=== PATIENT | female | born 1985 ===

== ENCOUNTER 2019-02-16 11:33 | Emergency (ER) | payer SELFPAY ==
[2019-02-16 12:30] VITALS: BP 102/59
--- NOTE | 2019-02-16 12:31 | Event Note ---
ED Screening Note Date of service: 02/16/19 Time: 12:23 ED Screening Note: This is a 33 y.o. F. that presents to the ER with 15 weeks . She was sent from the Center in [place] due to no tones during visit this morning. LMP 11/06/2018, A0 - vaginal bleeding, abdominal pain, urinary frequency, urgency, or dysuria. This initial assessment/diagnostic orders/clinical plan/treatment(s) is/are subject to change based on patients health status, clinical progression and re- assessment by fellow clinical providers in the ED. Further treatment and workup at subsequent clinical providers discretion. Patient/guardian urged not to elope from the ED as their condition may be serious if not clinically assessed and managed. Initial orders include: Labs
[2019-02-16 13:34] LABS: Bacteria,Urine 1+ /HPF (Negative); Bilirubin,Urine NEG (Negative); Blood,Urine SM (Negative); Color,Urine Straw (Yellow); Protein,Urine <15 mg/dL mg/dL (Negative); Urobilinogen,Urine < 2.0 mg/dL (<2.0)
[2019-02-16 13:36] LABS: HCG Qualitative,Urine Positive (Negative)
--- NOTE | 2019-02-16 13:42 | Emergency Department Report ---
ED HPI - General Chief complaint: Medical Clearance Stated complaint: 14WKS /NO HEARTBEAT(BABY) Time Seen by Provider: 02/16/19 12:22 Source: patient Mode of arrival: Ambulatory Limitations: Language Barrier - History of Present Illness Initial comments: The patient is a 3, para 1 female, not known to this provider previously. She reports her last period is November 2018. She typically follows with the [facility] Patient is sent to the emergency room for evaluation of presumed demise. The patient is not having any pain at this time. Radiation: none :: Yes - Related Data Allergies Allergy/AdvReac Type Severity Reaction Status Date / Time No Known Allergies Allergy Unverified 02/16/19 12:31 ED Review of Systems ROS: Stated complaint: 14WKS /NO HEARTBEAT(BABY) Other details as noted in HPI Constitutional: denies: fever Eyes: denies: eye discharge ENT: denies: congestion Respiratory: denies: wheezing Cardiovascular: denies: syncope Gastrointestinal: denies: abdominal pain, nausea, vomiting Genitourinary: denies: dysuria, abnormal menses Musculoskeletal: denies: back pain Neurological: denies: weakness Hematological/Lymphatic: denies: easy bleeding ED Past Medical Hx - Past Medical History Previous Medical History?: No - Surgical History Past Surgical History?: Yes Additional Surgical History: - Social History Smoking Status: Never Smoker Substance Use Type: None ED Physical Exam - General Limitations: Language Barrier General appearance: alert, in no apparent distress - Head Head exam: Present: atraumatic, normocephalic - Eye Eye exam: Present: normal appearance, EOMI. Absent: nystagmus - ENT ENT exam: Present: normal exam, normal orophraynx, mucous membranes moist, normal external ear exam - Neck Neck exam: Present: normal inspection, full ROM. Absent: tenderness, meningismus - Respiratory Respiratory exam: Present: normal lung sounds bilaterally. Absent: respiratory distress - Cardiovascular Cardiovascular Exam: Present: regular rate, normal rhythm, normal heart sounds. Absent: bradycardia, tachycardia, irregular rhythm, systolic murmur, diastolic murmur, rubs, gallop - GI/Abdominal GI/Abdominal exam: Present: soft, other (there is no abdominal tenderness, the uterus is consistent with dates). Absent: distended, tenderness, guarding, rebound, rigid, pulsatile mass - Extremities Exam Extremities exam: Present: normal inspection, full ROM, other (2+ pulses noted in the bilateral upper, lower extremities. There is no long bone tenderness. Musculoskeletal compartments are soft. The pelvis is stable.). Absent: pedal edema, joint swelling, calf tenderness - Back Exam Back exam: Present: normal inspection, full ROM. Absent: tenderness, CVA tenderness (R), CVA tenderness (L), paraspinal tenderness, vertebral tenderness - Neurological Exam Neurological exam: Present: alert, normal gait, other (there is no facial droop. The tongue is midline. Extraocular movements are intact bilaterally. Patient speaking in full complete sentences. Shoulder shrug is intact bilaterally. Hearing is grossly intact bilaterally. Visual acuity intact to finger counting and color perception at a close distance. 5/5 strength 4 extremities. Sensation intact to light touch in 4 extremities.). Absent: motor sensory deficit - Psychiatric Psychiatric exam: Present: normal mood - Skin Skin exam: Present: warm, dry, intact, normal color. Absent: rash ED Course Vital Signs 02/16/19 12:23 Temperature 98.3 F Pulse Rate 68 Respiratory 20 Rate Blood Pressure 102/59 O2 Sat by Pulse 99 Oximetry - Reevaluation(s) Reevaluation #1: 02/16/19 17:26 this provider is conversant in telugu ED Medical Decision Making - Lab Data Result diagrams: 02/16/19 13:41 Vital Signs 02/16/19 12:23 Temperature 98.3 F Pulse Rate 68 Respiratory 20 Rate Blood Pressure 102/59 O2 Sat by Pulse 99 Oximetry Lab Results 02/16/19 02/16/19 02/16/19 Range/Units 12:41 13:31 13:41 WBC 9.3 (4.5-11.0) K/mm3 RBC 4.64 (3.65-5.03) M/mm3 Hgb 13.8 (10.1-14.3) gm/dl Hct 39.9 (30.3-42.9) % MCV 86 (79-97) fl MCH 30 (28-32) pg MCHC 35 H (30-34) % RDW 13.6 (13.2-15.2) % Plt Count 283 (140-440) K/mm3 HCG, Quant 4204 H (0-4) mIU/mL Urine Color Straw (Yellow) Urine Turbidity Slightly-cloudy (Clear) Urine pH 6.0 (5.0-7.0) Ur Specific [place] 1.004 (1.003-1.030) Urine Protein <15 mg/dl (Negative) mg/dL Urine Glucose (UA) Neg (Negative) mg/dL Urine Ketones Neg (Negative) mg/dL Urine Blood Sm (Negative) Urine Nitrite Neg (Negative) Urine Bilirubin Neg (Negative) Urine Urobilinogen < 2.0 (<2.0) mg/dL Ur Leukocyte Esterase Neg (Negative) Urine WBC (Auto) 1.0 (0.0-6.0) /HPF Urine RBC (Auto) 2.0 (0.0-6.0) /HPF U Epithel Cells (Auto) 9.0 (0-13.0) /HPF Urine Bacteria (Auto) 1+ (Negative) /HPF Urine HCG, Qual Positive A (Negative) - Radiology Data Radiology results: report reviewed, image reviewed Print Report Referring Physician: MENDEL GOLDSTEIN Patient Name: BENI BLACKWELLFELICIA Date of : 1985 Sex: Female Report Date: 2019-02-16 Report Status: Finalized Findings [facility] [address] [place] [address] Ultrasound Report Signed Patient: BENI ADHIKARI#: [id number] : 1985 Acct:[id number] Age/Sex: 33 / F ADM Date: 02/16/19 Loc: ED Attending Dr: Ordering Physician: ALEX SHAW Date of Service: 02/16/19 Procedure(s): US OB <= 14 weeks fetus Accession Number(s): [id number] cc: ALEX SHAW ULTRASOUND OBSTETRIC Indication: negative tones on office visit Findings: No heart tones are identified. Estimated sonographic age is 13 weeks and 3 days. The ovaries are normal. There is no free fluid. Impression: No heart tones identified. Signer Name: Daniel Coburn MD Signed: 02/16/2019 1:42 PM Workstation Name: [id number] Transcribed By: CHRYSTAL Dictated By: Daniel Coburn MD Electronically Authenticated By: Daniel Coburn MD Signed Date/Time: 02/16/19 5923 - Medical Decision Making Differential diagnosis, including not limited to: demise Assessment and plan: 33-year-old female with a complaint of confirmation for demise. She does not endorse any additional complaints. She is not having pain, and does not endorse vaginal bleeding. She is afebrile with reassuring vital signs and in no acute distress. Laboratory studies reviewed and appreciated. Ultrasound confirms demise. Given that she is not having additional symptoms at this time, we would recommend expectant management. Discussed with obstetrics on-call, Dr. Espino, who agrees to this plan of care. The patient will need to follow-up with her outpatient [facility] physician. Critical care attestation.: If time is entered above; I have spent that time in minutes in the direct care of this critically ill patient, excluding procedure time. ED Disposition Clinical Impression: demise Disposition: DC-01 TO HOME OR SELFCARE Is pt being admited?: No Does the pt Need Aspirin: No Condition: Stable Instructions: Spontaneous Miscarriage (ED) Additional Instructions: Unfortunately, ultrasound today confirms demise. Continue current outpatient medications. Follow-up with her [facility] doctor within the next week. Return to emergency room right away with severe pain, severe bleeding, fever, chills, nausea, vomiting, weakness, change in mental status, new, worsened or different symptoms not present on initial emergency room evaluation. At this point time, no medical therapy is recommended for demise. Patient will most likely begin to have contractions, bleeding and cramping in the next few hours to days. Desafortunadamente, el ultrasonido de hoy confirma la muerte . Continuar con los medicamentos actuales para pacientes ambulatorios. Ernestine un seguimiento con betancourt mdico obstetra / gineclogo dentro de la prxima semana. Regrese a la kendrick de emergencias de inmediato con dolor intenso, sangrado intenso, fiebre, escalofros, nuseas, vmitos, debilidad, cambio en el estado mental, sntomas nuevos, empeorados o diferentes que no estn presentes en la evaluacin inicial de la kendrick de emergencias. En dani momento, no se recomienda ninguna terapia mdica para la muerte . Lo ms probable es que el paciente comience a tener contracciones, sangrado y calambres en las prximas horas o hoyt. Referrals: [facility] [Provider Group] - 3-5 Days [facility] [Provider Group] - 3-5 Days [facility] [Provider Group] - 3-5 Days Print Language: GREENLANDIC
--- NOTE | 2019-02-16 13:46 | Ultrasound Report ---
ULTRASOUND OBSTETRIC Indication: negative tones on office visit Findings: No heart tones are identified. Estimated sonographic age is 13 weeks and 3 days. The ovaries are normal. There is no free fluid. Impression: No heart tones identified. Signer Name: Daniel Coburn MD Signed: 02/16/2019 1:42 PM Workstation Name: [id number]
[2019-02-16 14:02] LABS: Hematocrit 39.9 % (30.3-42.9); Hemoglobin 13.8 gm/dl (10.1-14.3); Mean Corpuscular HGB Conc 35 % (30-34); Mean Corpuscular Volume 86 fl (79-97); Platelet Count 283 K/mm3 (140-440); Red Blood Count 4.64 M/mm3 (3.65-5.03); Red Cell Distribution Width 13.6 % (13.2-15.2)
== END 2019-02-16 14:51 | disposition home or self-care (01) ==
LOC: ED 11:33
DX: O36.4XX0 Maternal care for intrauterine death, not applicable or unspecified (principal); Z3A.14 14 weeks gestation of pregnancy
CPT/HCPCS: 36415; 76801; 81001; 81025; 84702; 85027; 86850; 86900; 86901

== ENCOUNTER 2019-04-27 01:51 | Emergency (ER) | payer SELFPAY ==
[2019-04-27 02:41] LABS: Basophils % (Auto) 0.4 % (0.0-1.8); Eosinophils # (Auto) 0.2 K/mm3 (0.0-0.4); Eosinophils % (Auto) 2.2 % (0.0-4.3); Hematocrit 41.7 % (30.3-42.9); Hemoglobin 14.2 gm/dl (10.1-14.3); Lymphocytes % (Auto) 32.3 % (13.4-35.0); Mean Corpuscular HGB Conc 34 % (30-34); Mean Corpuscular Volume 84 fl (79-97); Monocytes # (Auto) 0.7 K/mm3 (0.0-0.8); Monocytes % (Auto) 7.3 % (0.0-7.3); Platelet Count 349 K/mm3 (140-440); Red Blood Count 4.95 M/mm3 (3.65-5.03); Red Cell Distribution Width 13.1 % (13.2-15.2)
[2019-04-27 03:05] LABS: Alanine Aminotransferase 30 units/L (7-56); Albumin 4.1 g/dL (3.9-5); BUN/Creatinine Ratio 13; Blood Urea Nitrogen 9 mg/dL (7-17); Calcium 9.4 mg/dL (8.4-10.2); Hemolysis Index 4
--- NOTE | 2019-04-27 04:01 | Emergency Department Report ---
HPI - General Chief Complaint: Abdominal Pain Time Seen by Provider: 04/27/19 03:40 - HPI HPI: 33-year-old female presents to the emergency department with a complaint of some lower abdominal and/or pelvic pain that started at about 4 PM this afternoon and went until about 9 PM. The pain stopped at that time but she woke up around 1 AM with the pain restarting. She denies any fever, nausea, vomiting, dysuria, vaginal bleeding or discharge. Patient has a history of ovarian cysts and had a miscarriage about 2 months ago. She took some anti- inflammatories twice since the symptoms began. No recent travel or sick contacts at home. The patient does not speak any [place] African and nurse Zofia was at bedside to assist with translation. ED Past Medical Hx - Past Medical History Previous Medical History?: Yes Hx GERD: Yes Hx Headaches / Migraines: Yes (INCREASED RECENTLY ) Hx HIV: No - Surgical History Past Surgical History?: Yes Additional Surgical History: - Social History Smoking Status: Never Smoker Substance Use Type: None - Medications Home Medications: Home Medications Medication Instructions Recorded Confirmed Last Taken Type Doxycycline Hyclate [Doxycycline 100 mg PO Q12HR #14 tab 02/21/19 Unknown Rx Hyclate TAB] HYDROcodone/APAP 5-325 [[place] 1 each PO Q6HR PRN #10 tablet 04/27/19 Unknown Rx 5/325] ED Review of Systems ROS: Stated complaint: ABD PAIN Other details as noted in HPI Comment: All other systems reviewed and negative Constitutional: denies: chills, fever Respiratory: denies: shortness of breath Cardiovascular: denies: chest pain Gastrointestinal: abdominal pain. denies: vomiting Genitourinary: denies: dysuria, discharge Musculoskeletal: denies: back pain, arthralgia Skin: denies: rash, lesions Neurological: denies: headache, weakness Physical Exam - Physical Exam Vital Signs: Vital Signs 04/27/19 02:03 Temperature 98.2 F Pulse Rate 91 H Respiratory 20 Rate Blood Pressure 109/40 O2 Sat by Pulse 96 Oximetry Physical Exam: GENERAL: The patient is well-developed well-nourished. HEENT: Normocephalic. Atraumatic. Patient has moist mucous membranes. EYES: Extraocular motions are intact. NECK: Supple. Trachea is midline. CHEST/LUNGS: Clear to auscultation. There is no respiratory distress noted. HEART/CARDIOVASCULAR: Regular. There is no tachycardia. There is no murmur. ABDOMEN: Abdomen is soft. There is lower abdominal tenderness to palpation. No guarding. Patient has normal bowel sounds. There is no abdominal distention. SKIN:Skin is warm and dry. . NEURO: The patient is awake, alert, and oriented. The patient is cooperative. The patient has no focal neurologic deficits. Normal speech. MUSCULOSKELETAL: There is no tenderness or deformity. There is no evidence of acute injury. ED Course Vital Signs 04/27/19 02:03 Temperature 98.2 F Pulse Rate 91 H Respiratory 20 Rate Blood Pressure 109/40 O2 Sat by Pulse 96 Oximetry ED Medical Decision Making - Lab Data Result diagrams: 04/27/19 02:21 04/27/19 02:21 - Radiology Data Radiology results: report reviewed CT abdomen pelvis w con INDICATION: RLQ abd pain, pelvic pain. TECHNIQUE: All CT scans at this location are performed using the following dose modulation technique: Automated exposure control. Helical slices were obtained through the abdomen and pelvis following the administration of 100 cc of Omnipaque 300 COMPARISON: None available. FINDINGS: Abdomen: No acute abnormality is seen in the lower chest. Liver, spleen, pancreas, adrenal glands, and kidneys show no acute abnormality. Gallbladder is grossly unremarkable. There is no obstruction, inflammation, or free air. There are no abnormal fluid collections. Pelvis: There is a 9.5 x 7.2 x 5.7 cm dermoid in the pelvis which arises from the right ovary. The appendix is unremarkable. On review of bone windows, no acute osseous abnormalities are seen. IMPRESSION: 1. There is a large dermoid in the pelvis which arises from the right ovary. There is no obstruction or inflammation. The appendix is unremarkable. - Medical Decision Making This patient presented with some lower abdominal and pelvic pains that started in the afternoon and then stopped around 9 PM, but then restarted around 12:30 PM or 1:00 in the morning. At the time of my examination she denies any pain but does have some tenderness to palpation. Patient's labs have been unremarkable. A CT scan with IV contrast was done that did not show any signs of appendicitis but did show what appears to be a right-sided moderate to large dermoid cyst or tumor. An ultrasound was done for further differentiation and the results will be followed by my colleague, Dr Sanchez. - Differential Diagnosis appendicitis, ovarian torsion, ovarian cyst, Critical Care Time: No Critical care attestation.: If time is entered above; I have spent that time in minutes in the direct care of this critically ill patient, excluding procedure time. ED Disposition Clinical Impression: Dermoid cyst of right ovary, Pelvic pain Disposition: TO HOME OR SELFCARE Is pt being admited?: No Condition: Stable Instructions: Ovarian Cyst (ED) Additional Instructions: Please follow up with a DEVELOPMENT TEAM LEAD in the next few days. I am giving you multiple referrals for local DEVELOPMENT TEAM LEAD groups in the area. Return to the emergency Department with any worsening of your symptoms or any acute distress. You have been prescribed a medication that can be sedating. Therefore, this medication cannot be taken prior to driving, working, being responsible for children, and cannot be mixed with alcohol of any quantity. Prescriptions: HYDROcodone/APAP 5-325 [[place] 5/325] 1 each PO Q6HR PRN #10 tablet PRN Reason: Pain Referrals: [facility] [Provider Group] - 3-5 Days [facility] [Provider Group] - 3-5 Days [facility] [Provider Group] - 3-5 Days Time of Disposition: 06:04 Print Language: FAROESE
[2019-04-27 04:36] LABS: Bacteria,Urine 1+ /HPF (Negative); Bilirubin,Urine NEG (Negative); Blood,Urine NEG (Negative); Color,Urine Yellow (Yellow); Protein,Urine <15 mg/dL mg/dL (Negative); Urobilinogen,Urine < 2.0 mg/dL (<2.0)
--- NOTE | 2019-04-27 04:40 | Cat Scan Report ---
CT abdomen pelvis w con INDICATION: RLQ abd pain, pelvic pain. TECHNIQUE: All CT scans at this location are performed using the following dose modulation technique: Automated exposure control. Helical slices were obtained through the abdomen and pelvis following the administr ation of 100 cc of Omnipaque 300 COMPARISON: None available. FINDINGS: Abdomen: No acute abnormality is seen in the lower chest. Liver, spleen, pancreas, adrenal glands, an d kidneys show no acute abnormality. Gallbladder is grossly unremarkable. There is no obstruction, in flammation, or free air. There are no abnormal fluid collections. Pelvis: There is a 9.5 x 7.2 x 5.7 cm dermoid in the pelvis which arises from the right ovary. The ap pendix is unremarkable. On review of bone windows, no acute osseous abnormalities are seen. IMPRESSION: 1. There is a large dermoid in the pelvis which arises from the right ovary. There is no obstruction or inflammation. The appendix is unremarkable. Signer Name: Refugio Diaz MD Signed: 04/27/2019 4:36 AM Workstation Name: [id number]
--- NOTE | 2019-04-27 06:22 | Ultrasound Report ---
Pelvic ultrasound INDICATION: Pelvic pain, dermoid seen on CT FINDINGS: The uterus measures 8.4 cm in length. Endometrial stripe measures 15 mm. The right ovary measures 5 c m in length and left ovary measures 4.3 cm in length. The largest dermoid seen on CT is not well iden tified on this ultrasound likely due to its position posterior and in the midline. It is partially im aged on this study but has not completely evaluated. The dermoid is better seen on the CT exam. IMPRESSION: Dermoid seen on CT is partially imaged on this ultrasound exam. It is better demonstrated by the CT marjorie florence. Signer Name: Refugio Diaz MD Signed: 04/27/2019 6:17 AM Workstation Name: [id number]
[2019-04-27 06:39] VITALS: BP 112/68
== END 2019-04-27 06:38 | disposition home or self-care (01) ==
LOC: ED 01:51
DX: D27.0 Benign neoplasm of right ovary (principal); R10.2 Pelvic and perineal pain; K21.9 Gastro-esophageal reflux disease without esophagitis; G43.909 Migraine, unspecified, not intractable, without status migrainosus
CPT/HCPCS: 36415; 74177; 76830; 80053; 81001; 84703; 85025; 93975; 99284; Q9967

== ENCOUNTER 2019-05-09 06:25 | Inpatient (IN) | payer OTHER ==
[~2019-05-09 06:25] MED LIST: CELECOXIB 200 MG CAP PO NR; GABAPENTIN 300 MG CAP PO NR; LACTATED RINGERS 1,000 ML IV SCH; MIDAZOLAM 2 MG/2 ML INJ IV NR; SCOPOLAMINE TRANSDERMAL PATCH 72 HR TD NR; fentaNYL 100 MCG/2 ML INJ IV PRN
[2019-05-09] MEDS ORDERED: BACTERIOSTATIC SODIUM CHLORIDE 0.9% 30 ML VIAL INFILTRATI ONE (06:49)
[2019-05-09] MEDS ORDERED: dexAMETHasone 4 MG/ML VIAL ONE (06:53)
[2019-05-09] MEDS ORDERED: BUPIVACAINE-EPINEPHRINE/PF 0.25%-1:200,000 (30 ML) VIAL INFILTRATI ONE (06:53)
[2019-05-09] MEDS ORDERED: HYDROmorphone 1 MG/1 ML INJ ONE (08:29)
[2019-05-09] MEDS ORDERED: PROPOFOL 200 MG/20 ML VIAL IV ONE (08:29)
--- NOTE | 2019-05-09 08:47 | Anesthesia Day of Surgery ---
Anesthesia Day of Surgery - Day of Surgery Patient Examined: Yes Patient H&P Reviewed: Yes Patient is NPO: Yes
--- NOTE | 2019-05-09 08:47 | Anesthesia Consultation ---
Anesthesia Consult and Med Hx Date of service: 05/09/19 - Airway Anesthetic Teeth Evaluation: Good ROM Head & Neck: Adequate Mental/Hyoid Distance: Adequate Mallampati Class: Class III Intubation Access Assessment: Possibly Difficult - Pulmonary Exam CTA: Yes - Cardiac Exam Cardiac Exam: RRR - Pre-Operative Health Status ASA Pre-Surgery Classification: ASA1 Proposed Anesthetic Plan: General Nerve Block: TAP - Pulmonary Hx Smoking: No Hx Respiratory Symptoms: No - Cardiovascular System Hx Hypertension: No Hx Heart Attack/AMI: No Hx Percutaneous Transluminal Coronary Angioplasty (PTCA): No - Central Nervous System CVA: No Hx Psychiatric Problems: Yes (depression) - Gastrointestinal Hx Gastroesophageal Reflux Disease: Yes (diet controlled) - Endocrine Hx Renal Disease: No Hx Liver Disease: No Hx Insulin Dependent Diabetes: No Hx Non-Insulin Dependent Diabetes: No Hx Thyroid Disease: No - Other Systems Hx Obesity: No - Additional Comments Anesthesia Medical History Comments: No hx anesthetic complications. senior network security architect [id number] used for interview and consent.
[2019-05-09] MEDS ORDERED: ceFAZolin/STERILE WATER 2 GM/20 ML SYRINGE IV NR (09:00)
[2019-05-09] MEDS ORDERED: HYDROmorphone 1 MG/1 ML INJ IV PRN (09:00)
[2019-05-09] MEDS ORDERED: LIDOCAINE MPF (2%) 20 MG/1 ML VIAL 5 ML ONE (09:10)
[2019-05-09] MEDS ORDERED: dexAMETHasone 20 MG/5 ML VIAL ONE (09:11)
[2019-05-09] MEDS ORDERED: ONDANSETRON 4 MG/2 ML INJ ONE (09:11)
[2019-05-09] MEDS ORDERED: SODIUM CHLORIDE 0.9% IRR 1,500 ML BOTTLE IR ONE (09:21)
[2019-05-09] MEDS ORDERED: LACTATED RINGERS 1,000 ML ONE (09:52)
--- NOTE | 2019-05-09 10:29 | Operative Report ---
Operative Report Operative Report: Date of surgery: 05/09/2019 Admitting diagnosis: pelvic pain, rightovarian cyst, dermoid cyst. Postoperative diagnoses: Same. Procedure: exploratory laparotomy. Surgeon: Torie Salazar MD Baby Formula Worker surgeon: Meghan Ochoa M.D. Anesthesiologist: oDrie Gillette Operation Specialist: JAM Anesthesia: Gen. anesthesia EBL:50 mL Complications: None Findings: the right ovary was enlarged to about 10 cm x 5 cm, was cystic in nature and was inseparable from the ovarian tissue. The left ovary was of normal size but adherent to the posterior aspect of the broad ligament. Both fallopian tubes were kinked. The uterus was of normal size with 2 peanut sized subserosal fibroids just superior to the attachments of the uterosacral ligaments. There were no adhesions within the pelvis. Loops of bowel stuck to be seen within the lower abdomen and pelvis were grossly normal. The vermiform appendix was seen and was grossly normal.the upper abdomen was inaccessible through the small incision used for surgery. Procedure in details: The patient was taken to the operating room and was given a general anesthesia. The patient was then put in the supine position and prepped in the abdomen. The drapes were placed. A timeout was done. With the go ahead from the bilingual teacher aide,a Pfannenstiel incision was made. The fascia was cut transversely and subsequently stripped from the underlying straps of recti abdominis muscle. The pelvis was carefully examined. The right ovary which was distended with a unilocular cyst was identified. The posterior leaf of the broad ligaments on the right side was opened and allowed the identification of the right ureter. The right infundibulopelvic ligament was then developed and double clamped with 2 pairs Zander'sand then divided. This pedicle was tied off with #0 Vicryl.The specimen was thereafter excised by division of the utero ovarian ligament. This ligament was tied off with #0 Vicryl. Hemostasis was checked multiple times and carefully and was deemed satisfactory. Attempts at taking a picture of the left ovary was futile due to equipment issues. After irrigating the peritoneal cavity with sterile normal saline, the anterior parietal peritoneum was closed with #1 Vicryl. The fascia was closed with #0 Vicryl. The subcutaneous layer was hemostatic, and the skin was closed subcuticularly with 4-0 Vicryl on a Chaparro needle. All sponges and instruments were accounted for. There were no complications. The estimated blood loss was generously 50 mL.The patient tolerated the procedure well and was transferred to the recovery room in very good condition..
[2019-05-09] MEDS ORDERED: GLYCOPYRROLATE 0.4 MG/2 ML INJ ONE (10:34)
[2019-05-09] MEDS ORDERED: NEOSTIGMINE 10MG/10 ML INJ MDV ONE (10:34)
[2019-05-09] MEDS ORDERED: KETOROLAC 30 MG/1 ML INJ ONE (10:37)
[2019-05-09] MEDS ORDERED: MORPHINE 2 MG/1 ML INJ IV PRN (11:30)
[2019-05-09] MEDS ORDERED: ONDANSETRON 4 MG ODT TAB PO PRN (11:30)
[2019-05-09] MEDS ORDERED: ACETAMINOPHEN 325 MG TAB PO PRN (11:30)
--- NOTE | 2019-05-09 12:32 | Post Anesthesia Evaluation ---
- Post Anesthesia Evaluation Patient Participated: Yes Airway Patent: Yes Stable Respiratory Function: Yes Nausea/Vomiting: No Temp > 96.8F: Yes Pain Manageable: Yes Adequeate Hydration: Yes Anesthesia Complications: No
[2019-05-09] MEDS: HYDROcodone/ACETAMINOPHEN 5-325 MG TAB PO PRN (23:00)
[2019-05-10 05:19] LABS: Hemoglobin 12.9 gm/dl (10.1-14.3)
[2019-05-10] MEDS: HYDROcodone/ACETAMINOPHEN 5-325 MG TAB PO PRN (12:30)
[2019-05-10 13:13] VITALS: BP 98/55
== END 2019-05-10 14:30 | disposition home or self-care (01) | DRG 743 ==
LOC: 3A 06:33 → OB 11:39
PROVIDERS: ADMIT Obstetrics & Gynecology; ATTEND Obstetrics & Gynecology
PROC: 0UB00ZZ Excision of Right Ovary, Open Approach (ICD-10-PCS; principal; 2019-05-09)
DX: D27.0 Benign neoplasm of right ovary (principal); F32.9 Major depressive disorder, single episode, unspecified; K21.9 Gastro-esophageal reflux disease without esophagitis
CPT/HCPCS: 36415; 81025; 85014; 85018; 86850; 86900; 86901; 88305; G0378; J0690; J1100; J1170; J1885; J2250; J2405; J2704; J2710; J3010; J7120